=== PATIENT | female | born 1970 | race Caucasian/White ===

== ENCOUNTER 2021-01-09 12:15 | Emergency (ER) | payer MEDICARE ==
[~2021-01-09 12:15] MED LIST: BENTYL 20MG TAB20 MG PO; PHENERGAN 12.12.5 MG PR; ZOFRAN ODT 4 MG4 MG PO
[2021-01-09] MEDS ORDERED: BACTROBAN OINT22 GM EXT (13:15)
[2021-01-09] MEDS ORDERED: IBUPROFEN600 MG PO (13:15)
[2021-01-09] MEDS ORDERED: AUGMENTIN 875-1 EACH PO (13:15)
[2021-01-09] MEDS ORDERED: DIFLUCAN200 MG PO (13:27)
== END 2021-01-09 13:25 | disposition home or self-care (01) ==
LOC: ER1 12:15
DX: S61.251A Open bite of left index finger without damage to nail, initial encounter (principal); Z23 Encounter for immunization; W55.01XA Bitten by cat, initial encounter
CPT/HCPCS: 73130; 90471; 90715; 99283